=== PATIENT | female | born 1995 | race Caucasian/White ===

== ENCOUNTER 2017-01-31 05:13 | Inpatient (IN) | payer OTHER ==
[2017-01-10 12:35] VITALS: BMI 31.8
--- NOTE | 2017-01-31 05:58 | OBADHP ---
Datetime: 01/31/2017 05:51 Admit Comment, IP Provider: Patient is a @ 40.2 wks with SROM since 4:45am. Patient started inez enrique at that time, no vag bleeding, +FM, having some contractions. Patient denies antepartum issues, medical problems, no allergies, no surgeries. VE=/-2, grossly ruptured RRS=460 mod daniel, +accels, no decels TOCO = ctxning q 4 mins A/P 1. Dr. Joyner contacted and patient admitted for being grossly ruptured and early labor 2. IVF, CBC, Type and screen 3. Clear liquid diet 4. Attending does not want augmentation at this time Pelvic Type - PN: Adequate Extremities - PN: Normal Abdomen - PN: Normal Back - PN: Normal Breast - PN: Normal Lungs - PN: Normal Heart - PN: Normal Thyroid - PN: Normal Neurologic - PN: Normal HEENT - PN: Normal General - PN: Normal FHR - Baseline A Provider: 140 Amniotic Fluid Color, Provider: Clear Membranes, Provider: Ruptured Contraction Comments Provider: q 4 mins Vital Signs Provider: Reviewed; Within Normal Limits IP Chief Complaint: Suspected ruptured membranes NICHD Variability Prov Fetus A: Moderate 6-25bpm NICHD Accel Fetus A IP Provider: [id number] NICHD Decel Fetus A IP Provider: None Dilatation, Provider: 1 Effacement, Provider: 50 Station, Provider: -3 Genitourinary Exam: Normal DTRs - PN: Normal EGA AdmitDate IP: 41.3 IP Adm Impression: Term, intrauterine IP Admit Plan: Initiate labor induction protocol Datetime: 01/10/2017 12:20 Presentation-Admit: Vertex IP Fetus A Comments: Sonogram cephalic Comments, ACOG Physical Exam: ros: General pain from CTX HEENT: no GENAO; no visual dist CV: no CP; no palpitations Resp: No SOB; no cough GI: no N/V/D : no F/U/D MS: no joint pain Pool Provider: Negative IP Hx Assessment: The History has been Reviewed and is Current
[2017-01-31] MEDS ORDERED: Lactated Ringer's 1,000 ML IV SCH (06:00)
[2017-01-31 06:40] LABS: BASO % 0.3 % (0.0-2.0); EOS # 0.1 K/uL (0.0-0.7); EOS % 0.7 % (0.0-4.0); HEMATOCRIT 32.8 % (34.0-47.0); LYMPH # 1.9 K/uL (1.0-4.3); LYMPH % 17.8 % (20.0-40.0); MEAN CELL VOLUME 84.8 fl (81.0-99.0); MEAN CORPUSCULAR HEMOGLOBIN 27.6 pg (27.0-31.0); MEAN CORPUSCULAR HGB CONC 32.5 g/dL (33.0-37.0); MEAN PLATELET VOLUME 9.3 fl (7.2-11.7); MONO # 0.8 K/uL (0.0-0.8); MONO % 7.6 % (0.0-10.0); NEUT # 7.7 K/uL (1.8-7.0); NEUT % 73.6 % (50.0-75.0); NRBC % 0.1 % (0.0-0.0); WHITE BLOOD COUNT 10.4 K/uL (4.8-10.8)
[2017-01-31 06:55] VITALS: TEMP 97.9
[2017-01-31] MEDS ORDERED: Oxytocin 30 units/LR 500ML 500 ML IV ONE (08:03)
[2017-01-31] MEDS ORDERED: Lactated Ringer's 1,000 ML IV ONE (09:00)
[2017-01-31] MEDS ORDERED: LR IV SCH (09:15)
[2017-01-31] MEDS ORDERED: OXYTOCIN IV SCH (09:15)
[2017-01-31] MEDS ORDERED: cefOXitin Sodium 1 GM in Sodium Chloride 0.9% 100 ML IVPB ONE (13:54)
[2017-01-31] MEDS ORDERED: Morphine 1 mg/ml preservative-free Inj(Duramorph) ONE (14:53)
[2017-01-31] MEDS ORDERED: Propofol 10 mg/ml Inj (20 ML) ONE (15:16)
[2017-01-31] MEDS ORDERED: Naloxone 0.4 mg/ml Inj (Adult) IVP PRN (16:14)
[2017-01-31] MEDS ORDERED: DiphenhydrAMINE 50 mg/ml Inj IVP PRN (16:14)
[2017-01-31] MEDS ORDERED: Oxycodone/Acetaminophen 5/325 mg Tab PO PRN (16:20)
--- NOTE | 2017-01-31 16:35 | OBDS ---
DELIVERY PERSONNEL Delivery Doctor: Jose De Jesus Joyner MD Checker/Stocker: Elaina Lassiter RN/ Jessica Melton RN Anesthesiologist: Morgan Singh MD MATERNAL INFORMATION Delivery Anesthesia: Epidural Medications in Delivery: Pitocin 30/500 Estimated Blood Loss (ml): 800 Placenta Cultured: No Other Maternal Complications: meconium stained fluids/FITL Provider Comments: see dictated surgeons note LABOR SUMMARY EDC: 01/21/2017 00:00 No. Babies in Womb: 1 Attempted: No Labor Anesthesia: Epidural LABOR INFORMATION Reason for Induction: Not Applicable Onset of Labor: 01/31/2017 04:45 Other Ripening Agents: IV bolus of 999 for prep of EPi Oxytocin: Augmentation Group B Beta Strep: Negative Antibiotics # of Doses: Mefoxin 1x Antibiotics Time of Last Dose: 1435 Steroids Given: None Reason Steroids Not Administered: Not Applicable MEMBRANES Membranes Rupture Method: Spontaneous Rupture of Membranes: 01/31/2017 04:45 Length of Rupture (hrs): 10.30 Amniotic Fluid Color: Light Meconium Amniotic Fluid Amount: Moderate Amniotic Fluid Odor: Normal STAGES OF LABOR Stage 3 hrs: 0 Stage 3 min: 0 Total Time in Labor hrs: 10 Total Time in Labor min: 18 VAGINAL DELIVERY Episiotomy: None Laceration Extension: N/A Laceration Type: None Laceration Repair: Not Applicable Sponge Count Correct: N/A CSECTION DELIVERY Primary Indication: FITL Other Primary Indication: Light mech CSection Urgency: Emergency CSection Incidence: Primary Labor: N/A Elective: N/A CSection Incision: Lower Uterine Transverse Uterine Closure: Double-layer closure BABY A INFORMATION Infant Delivery Date/Time: 01/31/2017 15:03 Method of Delivery: Born in Route : No : N/A Forceps: N/A Vacuum Extraction: N/A Shoulder Dystocia : No SHOULDER DYSTOCIA BABY A Delivery Date/Time: 01/31/2017 15:03 PRESENTATION/POSITION BABY A Presentation: Cephalic Cephalic Presentation: Vertex Breech Presentation: N/A PLACENTA INFORMATION BABY A Placenta Delivery Time : 01/31/2017 15:03 Placenta Method of Delivery: Manual Removal Placenta Status: Delivered SCORES BABY A Heart Rate 1 min: >100 bpm Resp Effort 1 min: Good Cry Reflex Irritability 1 min: Cough or Sneeze or Pulls Away Muscle Tone 1 min: Active Motion Color 1 min: Body [place], Extremities Blue SCORE 1 MIN: 9 Heart Rate 5 min: >100 bpm Resp Effort 5 min: Good Cry Reflex Irritability 5 min: Cough or Sneeze or Pulls Away Muscle Tone 5 min: Active Motion Color 5 min: Body [place], Extremities Blue SCORE 5 MIN: 9 INFANT INFORMATION BABY A Gestational Age at Delivery: 41.3 Gestational Status: Term Infant Outcome : Liveborn Infant Condition : Stable Infant Sex: Female IDENTIFICATION/MEDS BABY A ID Band Number: [id number] ID Band Location: Left Leg; Left Arm WEIGHT/LENGTH BABY A Infant Birthweight (gms): 3260 Weight (lb): 7 Infant Weight (oz): 3 Infant Length Inches: 20.00 Infant Length cms: 50.8 CORD INFORMATION BABY A No. Cord Vessels: 3 Nuchal Cord : N/A Cord Blood Taken: Yes Suction: Mouth; Nose ASSESSMENT BABY A Infant Complications: None Physical Findings at Delivery: Within Normal Limits Infant Respirations: Appears Normal Commercial Real Estate Assistant/ALS Called : No Infant Care By: MD Holly Transferred To: Remains with Mother
[2017-01-31] MEDS ORDERED: cefOXitin Sodium 1 GM in Sodium Chloride 0.9% 100 ML IVPB SCH (17:00)
[2017-01-31] MEDS: cefOXitin Sodium 1 GM in Sodium Chloride 0.9% 100 ML IVPB SCH (22:21)
[2017-02-01] MEDS: cefOXitin Sodium 1 GM in Sodium Chloride 0.9% 100 ML IVPB SCH ×2 (06:01→14:00)
--- NOTE | 2017-02-01 07:26 | OBPPN ---
Datetime: 02/01/2017 07:21 PP Pain Prov: Within normal limits PP Pain Prov comment: No SOB, chest pains or leg pains PP Nausea Prov: Denies PP Flatus Prov: Yes PP BM Prov: No PP Breasts Prov: Normal PP Lungs Prov: Normal PP Abdomen/Uterus Prov: Abnormal PP Lochia Prov: Normal PP Vulva/Perineum Prov: Normal PP CVA Tenderness Prov: Normal PP Extremities Prov: Normal PP C/S Incision Prov: Normal PP Progress Prov: Normal PP Comments Phys Exam Prov: abd soft not distended, fundus firm below the umb. Dressing intact sergei kat, no active bleeding or suppt sutures in place, extremities no calf tenderness Venodyne in place PP Impression Prov: Normal progression PP Plan Prov: Continue present management PP Progress Note Prov: Pending CBC this am, increase diet as tolerated, OOB to chair with help Cont inue PO care IP PP Procedures: None
[2017-02-01 08:06] LABS: HEMATOCRIT 33.1 % (34.0-47.0); MEAN CORPUSCULAR HEMOGLOBIN 27.1 pg (27.0-31.0); MEAN CORPUSCULAR HGB CONC 31.9 g/dL (33.0-37.0); RED CELL DISTRIBUTION WIDTH 16.2 % (11.5-14.5); WHITE BLOOD COUNT 14.9 K/uL (4.8-10.8)
--- NOTE | 2017-02-02 07:56 | OBPPN ---
Datetime: 02/02/2017 07:50 PP Pain Prov: Within normal limits PP Pain Prov comment: no SOB, chest pains or leg pain PP Nausea Prov: Denies PP Flatus Prov: Yes PP BM Prov: No PP Breasts Prov: Normal PP Lungs Prov: Normal PP Abdomen/Uterus Prov: Abnormal PP Lochia Prov: Normal PP Vulva/Perineum Prov: Normal PP CVA Tenderness Prov: Normal PP Extremities Prov: Normal PP C/S Incision Prov: Normal PP Progress Prov: Normal PP Comments Phys Exam Prov: Abd soft nd, depressible fundus firm below the umb. Incision clean and d ry no active bleeding or suppt. Ext no calf tenderness PP Impression Prov: Normal progression PP Plan Prov: Continue present management PP Progress Note Prov: OOB and ambulation Continue PO care Dulcolax suppt this am IP PP Procedures: None Vital Signs Provider PP: Reviewed
[2017-02-03 08:46] VITALS: BP 134/51; PULSE 18; RESP 18
--- NOTE | 2017-02-03 09:15 | OBPPN ---
Datetime: 02/03/2017 09:10 PP Pain Prov: Within normal limits PP Pain Prov comment: No SOB, chest or leg pain PP Nausea Prov: Denies PP Flatus Prov: Yes PP BM Prov: Yes PP Nausea Prov comment: Denies C/F PP Flatus Prov comment: voiding well PP Breasts Prov: Normal PP Lungs Prov: Normal PP Abdomen/Uterus Prov: Abnormal PP Lochia Prov: Normal PP Vulva/Perineum Prov: Normal PP CVA Tenderness Prov: Normal PP Extremities Prov: Normal PP C/S Incision Prov: Normal PP Progress Prov: Normal PP Comments Phys Exam Prov: Breat not engourged Abd soft ND, depressible, fundus firm below the umb. Incision clean and dry no suppt or discharge or sign of infection Ext no calf tenderness PP Impression Prov: Normal progression PP Plan Prov: Discharge PP Progress Note Prov: D/C home and follow up in office 1 wk IP PP Procedures: None Vital Signs Provider PP: Reviewed
--- NOTE | 2017-02-03 09:19 | OBDCSUM ---
Datetime: 02/03/2017 09:13 Discharged to, Provider: Home Follow up at, Provider: Dr Joyner Disch Instr Activity: Bedrest; May be up to bathroom; May be up for meals; May Shower Disch Instr Diet: Regular Discharge Instructions, Provider: Routine instructions given Discharge Diagnosis, Provider: Term Delivered Discharge Time: 02/03/2017 09:13 Follow up in weeks, Provider: 1 wk Contraception discussed, Prov: Yes Disch Activity Restrictions: No exercising; No lifting; No driving; Minimize walking; Minimize stair -climbing; No sexual activity; Nothing in vagina - [place], tampons, douche Discharge Comment, Provider: rx for percocet Instructions given and appt to hand laminator oncologist Contraception after Delivery: Undecided
--- NOTE | 2017-02-05 10:33 | OP ---
PROCEDURE DATE: 01/31/2017 PREOPERATIVE DIAGNOSES: 1. at term. 2. Meconium-stained fluid. 3. 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 4. intolerance to labor. POSTOPERATIVE DIAGNOSES: 1. at term. 2. Evidence of left oophorectomy. 3. Right ovarian cyst. OPERATION PERFORMED: Primary low transverse segment section. SURGEON: Oni Joyner MD. LOAD DISPATCHER: Dr. Macario, who was there for the entire duration of the case. Food Products Sales Representative needed to help in providing positioning of pt, opening up the abdomen , delivery of baby and closure of abdomen in this major abdominal case ANESTHESIA USED: Epidural by Dr. Singh. ESTIMATED BLOOD LOSS: 800 mL. DRAINS USED: None. REPLACEMENTS USED: None. FINDINGS: 1. Delivered a living baby girl. Baby appears term. Baby cries spontaneously. Pediatrics in attendance. scores of 9 and 9. 2. Amniotic fluid meconium stained. 3. Placenta complete and intact. 4. Evidence of left prior oophorectomy noted. 5. Right ovarian cyst approximately 8 cm x 6 cm cyst smooth and totally encapsulated. No excretions consistent with a corpus luteal cyst. 6. Discussed with the patient at this time about possible cystectomy- oophorectomy. The patient declined. PROCEDURE: The patient was taken to the operating room and placed on the operating table in a supine position with an indwelling Mae catheter draining clear fluid. At this time, Venodyne boots were applied to both legs, and the anesthesia was augmented. Following this, the abdomen was draped and prepped in the usual sterile manner. After testing anesthesia, a Pfannenstiel incision was then made using sharp dissection. The incision was then extended down to subcutaneous tissue also using sharp dissection. At this time, we then proceeded to obtain hemostasis by means of electrocoagulation. Fascia was then identified, was then entered at the midline. Incision in the fascia was then extended laterally on each direction. Following this, we then proceeded to identify the rectus muscle, which was then slit at the midline, exposing the peritoneum. Peritoneal layer was then picked up using 2 Sophy clamps. I retracted superiorly and then entered using sharp dissection. Incision in the peritoneum was then extended superiorly and inferiorly under direct visualization. At this time, we then proceeded to identify the bladder, which was then retracted inferiorly using the Evon retractor. The low transverse segment of the uterus was then identified, and the visceral peritoneum covering this area was then entered using sharp dissection. Using blunt dissection, a bladder flap was then created and retracted inferiorly using the same [place] retractor. At this time, we then proceeded to make an incision in the low transverse segment of the uterus. Upon entering the uterine cavity, meconium-stained fluid was present. At this time, the incision was then extended laterally on each direction using bandage scissors. Using a manual scooping procedure, a living baby girl was then delivered. The baby appears term. The baby was immediately and aggressively aspirated using the bulb suction. The baby cries spontaneously. The baby was then handed to the pediatric personnel who was standing by. Samples of cord blood were then obtained, and the placenta was then delivered complete and intact. At this time, the uterus was then exteriorized to provide better visualization. Following this, we then proceeded to clean the uterine cavity using moist lap pads, and the uterus was then massaged and contracted well. Edges of the uterine incision were then secured using multiple T clamps and approximated using 0 Vicryl suture in a continuous interlocking manner. A second layer was also applied using 0 Vicryl suture in a continuous manner. Hemostasis checked and found to be well secure. Following this, we then proceeded to approximate the bladder flap using a 2-0 Rapide in a continuous manner. All operative areas were checked, hemostatically secure. Free amniotic fluid and blood were then evacuated from the pelvic cavity. At this time, evidence of previous left oophorectomy noted to be present, some adhesions of the bowel to this area, but did not pose any threat of incarceration. At this time, the right ovary was noted to have an 8 x 6 approximate cyst, which appears to be consistent with a corpus luteum cyst. No excretion noted. The patient was consulted at this time and was counseled about possible cystectomy-oophorectomy. Risk of malignancy and spreading of malignancy were discussed with the patient versus risk of waiting on oncology evaluation, and risk of a twisting of the ovary. The patient declined any surgery at this time. First, she would check with her [facility] oncologist after the section, and possible followup with her at this time. At this time, the uterus was then allowed to retract back into its original position, and all operative areas checked, hemostatically secure, and the abdomen was then closed using 0 Vicryl suture in a continuous manner for the peritoneum and for the rectus muscles at the midline. Fascia was then identified after no bleeding noted, and was approximated using 1 Vicryl suture in a continuous manner. Fascia was then checked and found to be free of defects. Subcutaneous tissue irrigated using saline solution, and approximated using several interrupted 2-0 plain sutures. The skin was then approximated using 3-0 Prolene in a subcuticular fashion. Steri-Strips were then applied. Clear fluid noted to be present in the Mae bag at this time. The patient tolerated the procedure well. There were no complications. She was transferred to the recovery room in satisfactory condition. Oni Joyner MD cc: 71 TT: 02/05/2017 10:33:10 jn [id number]
== END 2017-02-03 12:45 | disposition home or self-care (01) | DRG 371 ==
LOC: H.EROB2 05:13 → H.L&D 05:51 → H.OB/GYN 18:07
PROVIDERS: ADMIT Specialist; ATTEND Specialist
PROC: 10D00Z1 Extraction of Products of Conception, Low, Open Approach (ICD-10-PCS; principal; 2017-01-31)
PROC: 4A1HXCZ Monitoring of Products of Conception, Cardiac Rate, External Approach (ICD-10-PCS; 2017-01-31)
DX: O48.0 Post-term pregnancy (principal); O34.83 Maternal care for other abnormalities of pelvic organs, third trimester; Z37.0 Single live birth; O77.0 Labor and delivery complicated by meconium in amniotic fluid; Z3A.41 41 weeks gestation of pregnancy; N83.10 Corpus luteum cyst of ovary, unspecified side